=== PATIENT | female | born 1960 | race African-American/Black ===

== ENCOUNTER 2016-06-09 13:51 | Inpatient (IN) | payer MEDICAID, OTHER ==
[~2016-06-09] VITALS: Ht 167.6 cm; Wt 66.2 kg
[~2016-06-09 13:51] MED LIST: CLOB15CR5; KETO120S2; PRED10TA
[2016-06-09] MEDS ORDERED: MORPHINE SULFATE 4 MG/ML CPJ (NOT FOR IM USE) IV STA (15:17)
[2016-06-09] MEDS ORDERED: ONDANSETRON HCL 4MG/2ML VIAL IV STA (15:17)
[2016-06-09] MEDS ORDERED: SODIUM CHLORIDE 0.9% 1000ML BAG (SEPSIS BOLUS) IV ONE (15:30)
[2016-06-09 15:55] LABS: HEMATOCRIT. 30.3 % (36.0-48.0); HEMOGLOBIN. 9.8 g/dL (12.0-16.0); MEAN CORPUSCULAR HEMOGLOBIN 27.4 pg (28.0-32.0); MEAN CORPUSCULAR HGB CONC 32.2 g/dL (31.0-37.0); MEAN PLATELET VOLUME 7.8 fl (7.4-10.4); PLATELET 381 x1000/uL (130-400); RED BLOOD CELL COUNT 3.56 mill/uL (4.2-5.4); RED CELL DISTRIBUTION WIDTH 16.8 % (11.6-14.6); WHITE BLOOD COUNT 6.6 x1000/uL (4.5-11.0)
[2016-06-09 15:57] LABS: DIFFERENTIAL COMMENT 1
[2016-06-09 16:06] LABS: ALANINE AMINOTRANSFERASE 8 IU/L (13-61); ALBUMIN 1.9 g/dL (3.4-5.0); ANION GAP 13; CALCIUM 7.9 mg/dL (8.5-10.1); CARBON DIOXIDE 27 mEq/L (21-32); CHLORIDE 108 mEq/L (98-107); INDEX HEMOLYSI 1 (1-3); INDEX ICTERIC 1 (1-4); INDEX LIPEMIC 1 (1-3); eGFR > 60 mL/min (>60)
[2016-06-09 16:07] LABS: UREA NITROGEN BLOOD 4 mg/dL (7-21)
[2016-06-09 16:29] LABS: PLATELET ESTIMATE NORMAL
[2016-06-09 16:30] LABS: ANISOCYTOSIS 1+
[2016-06-09 17:13] LABS: INR 1.2
[2016-06-09] MEDS ORDERED: PIPERACILLIN/TAZ 3.375G PREMIX 50 ML IV ONE (17:30)
[2016-06-09] MEDS ORDERED: VANCOMYCIN 1 G PREMIX 200 ML IV ONE (21:15)
[2016-06-09 23:20] VITALS: BP 135/66
[2016-06-10] MEDS ORDERED: CLONIDINE 0.1MG TABLET PO PRN (01:30)
[2016-06-10] MEDS ORDERED: HYDROCODONE/ACETAMINOPHEN 5/325MG TABLET PO PRN (01:30)
[2016-06-10] MEDS ORDERED: ONDANSETRON HCL 4MG/2ML VIAL IV PRN (01:30)
[2016-06-10] MEDS ORDERED: MAGNESIUM/ALUMINUM HYDROXIDE/SIMETHICONE 30ML UDC PO PRN (01:30)
[2016-06-10] MEDS: SODIUM CHLORIDE 0.9% 1,000 ML IV SCH ×2 (03:24→17:30)
[2016-06-10] MEDS: PIPERACILLIN/TAZ 3.375G PREMIX 50 ML IV SCH ×2 (03:24→12:06)
[2016-06-10] MEDS ORDERED: VANCOMYCIN 500 MG PREMIX 100 ML IV SCH (05:00)
[2016-06-10 08:00] VITALS: BP 101/63
[2016-06-10] MEDS ORDERED: ENOXAPARIN 40MG/0.4ML SYR SUBCUT SCH (09:00)
[2016-06-10 10:02] LABS: ANION GAP 13; CALCIUM 7.5 mg/dL (8.5-10.1); CARBON DIOXIDE 22 mEq/L (21-32); CHLORIDE 117 mEq/L (98-107); HDL CHOLESTEROL 32 mg/dL (40-59); INDEX HEMOLYSI 4 (1-3); INDEX ICTERIC 1 (1-4); INDEX LIPEMIC 1 (1-3); LDL CHOLESTEROL 40 mg/dL (5-100); TRIGLYCERIDE 106 mg/dL (0-150); eGFR > 60 mL/min (>60)
[2016-06-10 10:06] LABS: UREA NITROGEN BLOOD 3 mg/dL (7-21)
[2016-06-10 12:00] VITALS: BP 88/52
[2016-06-10 14:16] LABS: HEMATOCRIT. 27.5 % (36.0-48.0); HEMOGLOBIN. 8.8 g/dL (12.0-16.0); MEAN CORPUSCULAR HEMOGLOBIN 26.9 pg (28.0-32.0); MEAN CORPUSCULAR HGB CONC 32.1 g/dL (31.0-37.0); MEAN PLATELET VOLUME 8.1 fl (7.4-10.4); PLATELET 317 x1000/uL (130-400); RED BLOOD CELL COUNT 3.27 mill/uL (4.2-5.4); RED CELL DISTRIBUTION WIDTH 17.3 % (11.6-14.6); WHITE BLOOD COUNT 7.2 x1000/uL (4.5-11.0)
[2016-06-10 14:30] LABS: DIFFERENTIAL COMMENT 1
[2016-06-10 16:00] VITALS: BP 117/93
[2016-06-10] MEDS: HYDROCODONE/ACETAMINOPHEN 10/325MG TABLET PO PRN (16:43)
[2016-06-10] MEDS: METOCLOPRAMIDE HCL 5MG TABLET PO SCH (17:52)
[2016-06-10] MEDS ORDERED: MEGESTROL ACETATE 20MG TABLET PO SCH (18:00)
[2016-06-10] MEDS: VANCOMYCIN 1 G PREMIX 200 ML IV SCH (18:33)
[2016-06-10] MEDS ORDERED: WARFARIN SODIUM 4MG TABLET PO ONE (19:00)
[2016-06-10 19:28] LABS: ANISOCYTOSIS 1+; PLATELET ESTIMATE NORMAL
[2016-06-10 20:00] VITALS: BP 101/71
[2016-06-10] MEDS ORDERED: WARFARIN SODIUM 7.5MG TABLET PO SCH (21:30)
[2016-06-11] VITALS: BP 100/58
[2016-06-11] MEDS: METOCLOPRAMIDE HCL 5MG TABLET PO SCH ×5 (00:10→23:56)
[2016-06-11] MEDS: PIPERACILLIN/TAZ 3.375G PREMIX 50 ML IV SCH ×3 (00:12→11:14)
[2016-06-11] MEDS: HYDROCODONE/ACETAMINOPHEN 10/325MG TABLET PO PRN ×3 (00:32→22:37)
[2016-06-11 01:59] LABS: INR 1.3; PROTHROMBIN TIME 13.5 sec
[2016-06-11] MEDS: SODIUM CHLORIDE 0.9% 1,000 ML IV SCH ×2 (03:10→16:14)
[2016-06-11 04:00] VITALS: BP 90/48
[2016-06-11] MEDS: VANCOMYCIN 1 G PREMIX 200 ML IV SCH ×2 (05:31→18:40)
[2016-06-11 08:00] VITALS: BP 100/62
[2016-06-11] MEDS: MEGESTROL ACETATE 400 MG/10 ML UDC PO SCH ×2 (08:00→08:48)
[2016-06-11] MEDS ORDERED: WARF4TAB39 PO (10:58)
[2016-06-11 12:00] VITALS: BP 102/59
[2016-06-11 13:22] LABS: HEMATOCRIT. 32.4 % (36.0-48.0); HEMOGLOBIN. 10.4 g/dL (12.0-16.0); MEAN CORPUSCULAR HEMOGLOBIN 26.8 pg (28.0-32.0); MEAN CORPUSCULAR VOLUME 83.8 fL (81.0-99.0); MEAN PLATELET VOLUME 7.7 fl (7.4-10.4); PLATELET 321 x1000/uL (130-400); RED BLOOD CELL COUNT 3.86 mill/uL (4.2-5.4); RED CELL DISTRIBUTION WIDTH 17.2 % (11.6-14.6); WHITE BLOOD COUNT 9.9 x1000/uL (4.5-11.0)
[2016-06-11 13:23] LABS: DIFFERENTIAL COMMENT 1
[2016-06-11 13:36] LABS: INR 1.4; PROTHROMBIN TIME 14.4 sec
[2016-06-11 13:59] LABS: CALCIUM 7.5 mg/dL (8.5-10.1)
[2016-06-11 14:58] LABS: ANISOCYTOSIS 1+; PLATELET ESTIMATE NORMAL
[2016-06-11 16:00] VITALS: BP 114/59
[2016-06-11] MEDS ORDERED: WARFARIN SODIUM 7.5MG TABLET PO NR (18:00)
[2016-06-11 20:00] VITALS: BP 104/57
[2016-06-11] MEDS: CEFTAZIDIME PENTAHYDRATE 1 G in DEXTROSE 5% WATER 50 ML IV SCH (22:26)
[2016-06-11] MEDS: METRONIDAZOLE 500 MG PREMIX 100 ML IV SCH (23:54)
[2016-06-12] VITALS: BP 104/55
[2016-06-12 04:00] VITALS: BP 96/60
[2016-06-12] MEDS: METOCLOPRAMIDE HCL 5MG TABLET PO SCH ×3 (04:56→18:46)
[2016-06-12] MEDS: SODIUM CHLORIDE 0.9% 1,000 ML IV SCH ×2 (04:56→13:15)
[2016-06-12] MEDS: VANCOMYCIN 1 G PREMIX 200 ML IV SCH (04:56)
[2016-06-12 05:52] LABS: INR 1.7
[2016-06-12 06:23] LABS: HEMATOCRIT. 26.7 % (36.0-48.0); HEMOGLOBIN. 8.6 g/dL (12.0-16.0); MEAN CORPUSCULAR HEMOGLOBIN 27.1 pg (28.0-32.0); MEAN CORPUSCULAR HGB CONC 32.2 g/dL (31.0-37.0); MEAN CORPUSCULAR VOLUME 84.2 fL (81.0-99.0); MEAN PLATELET VOLUME 8.2 fl (7.4-10.4); PLATELET 272 x1000/uL (130-400); RED BLOOD CELL COUNT 3.17 mill/uL (4.2-5.4); RED CELL DISTRIBUTION WIDTH 16.8 % (11.6-14.6); WHITE BLOOD COUNT 7.7 x1000/uL (4.5-11.0)
[2016-06-12 06:51] LABS: DIFFERENTIAL COMMENT 1
[2016-06-12 06:55] LABS: CALCIUM 7.1 mg/dL (8.5-10.1); VANCOMYCIN TROUGH 31.3 ug/mL (5.0-10.0)
[2016-06-12] MEDS: CEFTAZIDIME PENTAHYDRATE 1 G in DEXTROSE 5% WATER 50 ML IV SCH ×2 (07:58→20:00)
[2016-06-12] MEDS: MEGESTROL ACETATE 400 MG/10 ML UDC PO SCH (07:58)
[2016-06-12 08:00] VITALS: BP 90/52
[2016-06-12] MEDS: METRONIDAZOLE 500 MG PREMIX 100 ML IV SCH ×2 (10:24→20:27)
[2016-06-12 11:59] LABS: PLATELET ESTIMATE NORMAL
[2016-06-12 12:00] VITALS: BP 103/60
[2016-06-12] MEDS: HYDROCODONE/ACETAMINOPHEN 10/325MG TABLET PO PRN ×2 (12:26→21:30)
[2016-06-12] MEDS ORDERED: POTASSIUM CHLORIDE 20MEQ TABLET SR PO NR (13:15)
[2016-06-12 16:00] VITALS: BP 107/58
[2016-06-12] MEDS ORDERED: WARFARIN SODIUM 7.5MG TABLET PO NR (18:00)
[2016-06-12 20:00] VITALS: BP 109/72
[2016-06-12] MEDS ORDERED: METRONIDAZOLE 500MG TABLET PO NR (20:30)
[2016-06-12] MEDS ORDERED: CLARITHROMYCIN 500MG TABLET PO NR (20:30)
[2016-06-12] MEDS: PANTOT AC/MIN OIL/PET HY-PHL OINT 52.5GM (AQUAPHOR) TOP SCH (21:32)
[2016-06-13] VITALS: BP 108/46
[2016-06-13] MEDS: METOCLOPRAMIDE HCL 5MG TABLET PO SCH ×5 (01:21→23:08)
[2016-06-13] MEDS: SODIUM CHLORIDE 0.9% 1,000 ML IV SCH ×2 (05:33→19:14)
[2016-06-13] MEDS ORDERED: CLARITHROMYCIN 500MG TABLET PO NR (06:00)
[2016-06-13] MEDS ORDERED: VANCOMYCIN 1 G PREMIX 200 ML IV SCH (06:00)
[2016-06-13] MEDS: HYDROCODONE/ACETAMINOPHEN 10/325MG TABLET PO PRN ×2 (06:48→23:09)
[2016-06-13 08:00] VITALS: BP 102/65
[2016-06-13] MEDS: MEGESTROL ACETATE 400 MG/10 ML UDC PO SCH (08:00)
[2016-06-13] MEDS: PANTOT AC/MIN OIL/PET HY-PHL OINT 52.5GM (AQUAPHOR) TOP SCH (09:21)
[2016-06-13] MEDS: CEFTAZIDIME PENTAHYDRATE 1 G in DEXTROSE 5% WATER 50 ML IV SCH ×2 (09:21→21:07)
[2016-06-13] MEDS: METRONIDAZOLE 500 MG PREMIX 100 ML IV SCH ×2 (11:09→23:09)
[2016-06-13 12:00] VITALS: BP 111/67
[2016-06-13] MEDS: MORPHINE SULFATE 2 MG/ML CPJ (NOT FOR IM USE) IV PRN ×2 (15:16→21:33)
[2016-06-13 16:00] VITALS: BP 128/93
[2016-06-13] MEDS: MUPIROCIN 2% CREAM 15GM TOP SCH ×2 (16:18→21:33)
[2016-06-13 17:17] LABS: BASOPHILS % 0.3 % (0.0-2.0); EOSINOPHILS % 13.2 % (0.0-5.0); HEMATOCRIT. 29.3 % (36.0-48.0); HEMOGLOBIN. 9.2 g/dL (12.0-16.0); LYMPHOCYTES % 9.5 % (20.0-50.0); MEAN CORPUSCULAR HEMOGLOBIN 25.8 pg (28.0-32.0); MEAN CORPUSCULAR HGB CONC 31.4 g/dL (31.0-37.0); MEAN CORPUSCULAR VOLUME 82.2 fL (81.0-99.0); MEAN PLATELET VOLUME 7.5 fl (7.4-10.4); MONOCYTES % 8.5 % (2.0-8.0); NEUTROPHILS % 68.5 % (40.0-76.0); PLATELET 328 x1000/uL (130-400); RED BLOOD CELL COUNT 3.57 mill/uL (4.2-5.4); RED CELL DISTRIBUTION WIDTH 17.6 % (11.6-14.6); WHITE BLOOD COUNT 11.3 x1000/uL (4.5-11.0)
[2016-06-13 17:43] LABS: CALCIUM 7.3 mg/dL (8.5-10.1)
[2016-06-13] MEDS: VANCOMYCIN 1 G PREMIX 200 ML IV SCH (17:43)
[2016-06-13 17:49] LABS: INR 3.4; PROTHROMBIN TIME 35.2 sec
[2016-06-13] MEDS ORDERED: WARFARIN SODIUM 7.5MG TABLET PO NR (18:00)
[2016-06-13 20:00] VITALS: BP 111/64
[2016-06-14] VITALS: BP 112/64
[2016-06-14 04:00] VITALS: BP 112/64
[2016-06-14 08:00] VITALS: BP 101/69
[2016-06-14] MEDS: METOCLOPRAMIDE HCL 5MG TABLET PO SCH ×4 (08:19→23:18)
[2016-06-14] MEDS: MUPIROCIN 2% CREAM 15GM TOP SCH ×3 (08:19→21:43)
[2016-06-14] MEDS: CEFTAZIDIME PENTAHYDRATE 1 G in DEXTROSE 5% WATER 50 ML IV SCH ×2 (09:18→20:36)
[2016-06-14] MEDS: PANTOT AC/MIN OIL/PET HY-PHL OINT 52.5GM (AQUAPHOR) TOP SCH (09:18)
[2016-06-14] MEDS: METRONIDAZOLE 500 MG PREMIX 100 ML IV SCH ×2 (09:18→21:43)
[2016-06-14] MEDS: VANCOMYCIN 1 G PREMIX 200 ML IV SCH (09:18)
[2016-06-14] MEDS: MEGESTROL ACETATE 400 MG/10 ML UDC PO SCH (09:19)
[2016-06-14 09:42] LABS: BASOPHILS % 0.3 % (0.0-2.0); HEMOGLOBIN. 8.6 g/dL (12.0-16.0); LYMPHOCYTES % 8.1 % (20.0-50.0); MEAN CORPUSCULAR HEMOGLOBIN 26.4 pg (28.0-32.0); MEAN CORPUSCULAR HGB CONC 31.8 g/dL (31.0-37.0); MEAN CORPUSCULAR VOLUME 82.9 fL (81.0-99.0); MEAN PLATELET VOLUME 7.9 fl (7.4-10.4); NEUTROPHILS % 71.6 % (40.0-76.0); PLATELET 294 x1000/uL (130-400); RED BLOOD CELL COUNT 3.26 mill/uL (4.2-5.4); RED CELL DISTRIBUTION WIDTH 17.4 % (11.6-14.6); WHITE BLOOD COUNT 12.1 x1000/uL (4.5-11.0)
[2016-06-14 09:47] LABS: INR 5.3
[2016-06-14 10:25] LABS: CALCIUM 7.5 mg/dL (8.5-10.1); URIC ACID 8.2 mg/dL (2.6-7.2)
[2016-06-14 12:00] VITALS: BP 106/70
[2016-06-14 16:00] VITALS: BP 127/72
[2016-06-14 16:57] LABS: CREATINE KINASE 126 IU/L (26-192); INDEX HEMOLYSI 1 (1-3)
[2016-06-14] MEDS: SODIUM CHLORIDE 0.9% 1,000 ML IV SCH (18:25)
[2016-06-14] MEDS: HYDROCODONE/ACETAMINOPHEN 10/325MG TABLET PO PRN (19:58)
[2016-06-15] VITALS (7 sets, daily range): BP systolic 97–122; BP diastolic 55–78
[2016-06-15] MEDS: MUPIROCIN 2% CREAM 15GM TOP SCH ×3 (06:54→22:00)
[2016-06-15] MEDS: METOCLOPRAMIDE HCL 5MG TABLET PO SCH ×3 (06:54→20:23)
[2016-06-15] MEDS: HYDROCODONE/ACETAMINOPHEN 10/325MG TABLET PO PRN (07:13)
[2016-06-15] MEDS: MEGESTROL ACETATE 400 MG/10 ML UDC PO SCH (08:00)
[2016-06-15 08:27] LABS: BASOPHILS % 0.4 % (0.0-2.0); EOSINOPHILS % 13.5 % (0.0-5.0); HEMOGLOBIN. 8.9 g/dL (12.0-16.0); LYMPHOCYTES % 10.1 % (20.0-50.0); MEAN CORPUSCULAR HEMOGLOBIN 26.3 pg (28.0-32.0); MEAN CORPUSCULAR HGB CONC 31.7 g/dL (31.0-37.0); MEAN CORPUSCULAR VOLUME 82.8 fL (81.0-99.0); MEAN PLATELET VOLUME 7.9 fl (7.4-10.4); MONOCYTES % 8.4 % (2.0-8.0); NEUTROPHILS % 67.6 % (40.0-76.0); PLATELET 312 x1000/uL (130-400); RED BLOOD CELL COUNT 3.38 mill/uL (4.2-5.4); RED CELL DISTRIBUTION WIDTH 17.3 % (11.6-14.6); WHITE BLOOD COUNT 11.7 x1000/uL (4.5-11.0)
[2016-06-15 08:36] LABS: PROTHROMBIN TIME 47.8 sec
[2016-06-15 08:41] LABS: INR 4.6
[2016-06-15 08:54] LABS: CALCIUM 7.4 mg/dL (8.5-10.1)
[2016-06-15] MEDS: CEFTAZIDIME PENTAHYDRATE 1 G in DEXTROSE 5% WATER 50 ML IV SCH (10:12)
[2016-06-15] MEDS: PANTOT AC/MIN OIL/PET HY-PHL OINT 52.5GM (AQUAPHOR) TOP SCH (10:22)
[2016-06-15] MEDS: METRONIDAZOLE 500 MG PREMIX 100 ML IV SCH ×2 (11:58→20:41)
[2016-06-15] MEDS ORDERED: HYDROCODONE/ACETAMINOPHEN 10/325MG TABLET PO PRN (16:00)
[2016-06-15] MEDS: ACETAMINOPHEN 325MG TABLET PO PRN (20:41)
[2016-06-15] MEDS: SODIUM CHLORIDE 0.9% 1,000 ML IV SCH (20:44)
[2016-06-16] MEDS: SODIUM CHLORIDE 0.9% 1,000 ML IV SCH
[2016-06-16] MEDS: METOCLOPRAMIDE HCL 5MG TABLET PO SCH ×4 (00:02→18:00)
[2016-06-16 03:41] VITALS: BP 117/69
[2016-06-16] MEDS: MUPIROCIN 2% CREAM 15GM TOP SCH ×2 (06:06→14:00)
[2016-06-16 07:25] LABS: PROTHROMBIN TIME 51.4 sec
[2016-06-16 08:00] VITALS: BP 104/62
[2016-06-16 08:53] LABS: INR 4.9
[2016-06-16] MEDS ORDERED: CEFTAZIDIME PENTAHYDRATE 1 G in DEXTROSE 5% WATER 50 ML IV SCH (09:00)
[2016-06-16] MEDS: MEGESTROL ACETATE 400 MG/10 ML UDC PO SCH (09:52)
[2016-06-16] MEDS: METRONIDAZOLE 500 MG PREMIX 100 ML IV SCH (09:52)
[2016-06-16] MEDS: PANTOT AC/MIN OIL/PET HY-PHL OINT 52.5GM (AQUAPHOR) TOP SCH (09:53)
[2016-06-16 12:00] VITALS: BP 96/56
[2016-06-16 16:00] VITALS: BP 97/68
[2016-06-16] MEDS ORDERED: VANCOMYCIN 500 MG PREMIX 100 ML IV SCH (16:00)
[2016-06-16] MEDS: ACETAMINOPHEN 325MG TABLET PO PRN (16:48)
[2016-06-16 18:06] VITALS: BP 97/68
[2016-06-17 17:09] LABS: ANTI-NUCLEAR ANTIBODIES DIRECT Negative (Negative)
[2016-06-19 13:13] LABS: A/G RATIO 0.7 (0.7-1.7); ALBUMIN 1.8 g/dL (2.9-4.4); ALPHA-1-GLOBULIN 0.4 g/dL (0.0-0.4); ALPHA-2-GLOBULIN 0.6 g/dL (0.4-1.0); BETA GLOBULIN 0.7 g/dL (0.7-1.3); GAMMA GLOBULINS 0.8 g/dL (0.4-1.8); GLOBULIN TOTAL 2.5 g/dL (2.2-3.9); M-SPIKE Not Observed g/dL (Not Observed); TOTAL PROTEIN SERUM 4.3 g/dL (6.0-8.5)
[2016-06-20 06:19] LABS: COMPLEMENT C3 81 mg/dL (82-167); COMPLEMENT C4 24 mg/dL (14-44)
== END 2016-06-16 19:06 | disposition home or self-care (01) | DRG 383 ==
LOC: ER 14:20 → 6EST 21:12
PROVIDERS: ADMIT Internal Medicine; ATTEND Internal Medicine
PROC: 02HV33Z Insertion of Infusion Device into Superior Vena Cava, Percutaneous Approach (ICD-10-PCS; principal; 2016-06-10)
PROC: B548ZZA Ultrasonography of Superior Vena Cava, Guidance (ICD-10-PCS; 2016-06-10)
PROC: 02HV33Z Insertion of Infusion Device into Superior Vena Cava, Percutaneous Approach (ICD-10-PCS; 2016-06-13)
PROC: B5181ZA Fluoroscopy of Superior Vena Cava using Low Osmolar Contrast, Guidance (ICD-10-PCS; 2016-06-13)
PROC: B548ZZA Ultrasonography of Superior Vena Cava, Guidance (ICD-10-PCS; 2016-06-13)
DX: L03.115 Cellulitis of right lower limb (principal); E43 Unspecified severe protein-calorie malnutrition; D68.9 Coagulation defect, unspecified; E87.0 Hyperosmolality and hypernatremia; N17.9 Acute kidney failure, unspecified; C43.9 Malignant melanoma of skin, unspecified; C84.A0 Cutaneous T-cell lymphoma, unspecified, unspecified site; S71.101A Unspecified open wound, right thigh, initial encounter; T45.1X5A Adverse effect of antineoplastic and immunosuppressive drugs, initial encounter; E83.51 Hypocalcemia; K52.9 Noninfective gastroenteritis and colitis, unspecified; D64.9 Anemia, unspecified; J45.909 Unspecified asthma, uncomplicated; E87.6 Hypokalemia; E88.09 Other disorders of plasma-protein metabolism, not elsewhere classified; R59.0 Localized enlarged lymph nodes; D72.825 Bandemia; B95.2 Enterococcus as the cause of diseases classified elsewhere; B96.5 Pseudomonas (aeruginosa) (mallei) (pseudomallei) as the cause of diseases classified elsewhere; B96.89 Other specified bacterial agents as the cause of diseases classified elsewhere; Z16.21 Resistance to vancomycin; X58.XXXA Exposure to other specified factors, initial encounter; Z68.23 Body mass index [BMI] 23.0-23.9, adult; Z88.8 Allergy status to other drugs, medicaments and biological substances; Z91.018 Allergy to other foods; Z85.89 Personal history of malignant neoplasm of other organs and systems; Z86.718 Personal history of other venous thrombosis and embolism; Z22.322 Carrier or suspected carrier of Methicillin resistant Staphylococcus aureus; Y93.89 Activity, other specified; Y92.89 Other specified places as the place of occurrence of the external cause; Y99.8 Other external cause status
CPT/HCPCS: 36415; 36569; 71010; 76770; 76937; 77001; 80048; 80053; 80061; 80202; 82270; 82550; 83605; 83615; 84155; 84165; 84550; 85025; 85384; 85610; 86038; 86160; 87015; 87040; 87045; 87070; 87077; 87186; 87205; 87427; 87449; 87493; 89055; 93005; 93970; 96361; 96365; 96367; 96375; 97116; 97162; 97167; 97530; 97535; 99285; A6261; C1725; C1769; C1893; J0713; J1650; J2270; J2405; J2543; J3370; J3490; J7030; J7050; J7060; J8597

== ENCOUNTER 2017-01-23 12:24 | Inpatient (IN) | payer MEDICAID, OTHER ==
[~2017-01-23] VITALS: Ht 157.5 cm; Wt 97.1 kg
[2017-01-23] MEDS ORDERED: MORPHINE SULFATE 4 MG/ML CPJ (NOT FOR IM USE) IV STA (13:17)
[2017-01-23 13:26] LABS: MEAN CORPUSCULAR HEMOGLOBIN 28.6 pg (28.0-32.0); MEAN CORPUSCULAR VOLUME 82.5 fL (81.0-99.0); PLATELET 56 x1000/uL (130-400); RED BLOOD CELL COUNT 2.05 mill/uL (4.2-5.4); RED CELL DISTRIBUTION WIDTH 16.8 % (11.6-14.6)
[2017-01-23 13:28] LABS: CHLORIDE 104 mEq/L (98-107)
[2017-01-23] MEDS ORDERED: PIPERACILLIN/TAZ 3.375G PREMIX 50 ML IV ONE (13:30)
[2017-01-23] MEDS ORDERED: VANCOMYCIN 1 G PREMIX 200 ML IV ONE (13:30)
[2017-01-23 13:31] LABS: INR 2.1; PROTHROMBIN TIME 22.1 sec (9.4-11.6)
[2017-01-23 13:33] LABS: CARBON DIOXIDE 25 mEq/L (21-32)
[2017-01-23 13:34] LABS: HEMATOCRIT. 16.9 % (36.0-48.0); HEMOGLOBIN. 5.9 g/dL (12.0-16.0)
[2017-01-23] MEDS ORDERED: MORPHINE SULFATE 10 MG/ML CPJ IV SCH (13:35)
[2017-01-23] MEDS ORDERED: SODIUM CHLORIDE 0.9% 1,000 ML IV SCH (13:51)
[2017-01-23 14:44] LABS: CLARITY URINE CLEAR (CLEAR); COLOR URINE YELLOW (YELLOW); GLUCOSE URINE NEGATIVE (NEGATIVE); KETONES URINE 1+ (NEGATIVE); LEUKOCYTE ESTERASE URINE NEGATIVE (NEGATIVE); NITRITE URINE NEGATIVE (NEGATIVE); OCCULT BLOOD URINE NEGATIVE (NEGATIVE); PROTEIN URINE TRACE (NEGATIVE); SPECIFIC GRAVITY URINE 1.011 (1.005-1.030)
[2017-01-23] MEDS ORDERED: ONDANSETRON HCL 4MG/2ML VIAL IV PRN (15:15)
[2017-01-23] MEDS ORDERED: IPRATROPIUM/ALBUTEROL 0.5-3(2.5)MG/3ML NEB INH PRN (15:15)
[2017-01-23 16:01] LABS: PLATELET ESTIMATE DECREASED
[2017-01-23] MEDS ORDERED: VANCOMYCIN 1 G PREMIX 200 ML IV SCH (18:00)
[2017-01-23] MEDS: HYDROCODONE/ACETAMINOPHEN 5/325MG TABLET PO PRN ×2 (18:25→22:53)
[2017-01-23 18:26] VITALS: BP 105/46
[2017-01-23 19:51] VITALS: BP 99/50
[2017-01-23] MEDS: PIPERACILLIN/TAZ 3.375G PREMIX 50 ML IV SCH (20:37)
[2017-01-23] MEDS ORDERED: FILGRASTIM 300 MCG/ML VIAL SUBCUT SCH (21:00)
[2017-01-23] MEDS ORDERED: VANCOMYCIN 1500MG in DEXTROSE 5% WATER 250ML IV SCH (21:00)
[2017-01-23 23:01] VITALS: BP 99/50
[2017-01-23 23:41] LABS: CARBON DIOXIDE 26 mEq/L (21-32); CHLORIDE 105 mEq/L (98-107)
[2017-01-24] VITALS (8 sets, daily range): BP systolic 90–105; BP diastolic 44–58
[2017-01-24] MEDS: PIPERACILLIN/TAZ 3.375G PREMIX 50 ML IV SCH ×4 (02:46→20:26)
[2017-01-24] MEDS: MORPHINE SULFATE 10 MG/ML CPJ IV PRN ×4 (04:57→21:24)
[2017-01-24 06:39] LABS: HEMATOCRIT. 21.3 % (36.0-48.0); HEMOGLOBIN. 7.4 g/dL (12.0-16.0); MEAN CORPUSCULAR HEMOGLOBIN 29.1 pg (28.0-32.0); MEAN CORPUSCULAR VOLUME 83.4 fL (81.0-99.0); MEAN PLATELET VOLUME 7.7 fl (7.4-10.4); PLATELET 67 x1000/uL (130-400); RED BLOOD CELL COUNT 2.55 mill/uL (4.2-5.4); RED CELL DISTRIBUTION WIDTH 16.3 % (11.6-14.6)
[2017-01-24] MEDS: VANCOMYCIN 1 G PREMIX 200 ML IV SCH ×2 (09:31→22:00)
[2017-01-24] MEDS: HYDROCODONE/ACETAMINOPHEN 5/325MG TABLET PO PRN (09:36)
[2017-01-24] MEDS: ACETAMINOPHEN 325MG TABLET PO PRN ×2 (11:48→20:00)
[2017-01-24] MEDS: SODIUM CHLORIDE 0.9% 1,000 ML IV SCH (14:56)
[2017-01-24 16:52] LABS: PLATELET ESTIMATE DECREASED
[2017-01-24] MEDS: FILGRASTIM-TBO 480 MCG/0.8 ML SYRINGE SQ SCH (23:06)
[2017-01-25] VITALS (12 sets, daily range): BP systolic 90–103; BP diastolic 46–58
[2017-01-25] MEDS: MORPHINE SULFATE 10 MG/ML CPJ IV PRN ×7 (02:32→23:16)
[2017-01-25] MEDS: PIPERACILLIN/TAZ 3.375G PREMIX 50 ML IV SCH ×4 (02:39→20:52)
[2017-01-25] MEDS: SODIUM CHLORIDE 0.9% 1,000 ML IV SCH ×2 (06:00→09:40)
[2017-01-25 07:25] LABS: CARBON DIOXIDE 23 mEq/L (21-32); CHLORIDE 107 mEq/L (98-107)
[2017-01-25] MEDS: ACETAMINOPHEN 325MG TABLET PO PRN (08:58)
[2017-01-25] MEDS: VANCOMYCIN 1 G PREMIX 200 ML IV SCH (09:39)
[2017-01-25] MEDS: MIDODRINE HCL 2.5MG TABLET PO SCH ×2 (12:01→16:47)
[2017-01-25] MEDS ORDERED: POTASSIUM CHLORIDE INJ 40 MEQ in DEXT 5% WATER 250 ML IV NR (16:00)
[2017-01-25] MEDS: FILGRASTIM-TBO 480 MCG/0.8 ML SYRINGE SQ SCH (22:47)
[2017-01-25] MEDS: VANCOMYCIN 750 MG PREMIX 150 ML IV SCH (23:17)
[2017-01-26] VITALS (13 sets, daily range): BP systolic 82–114; BP diastolic 40–69
[2017-01-26] MEDS: MORPHINE SULFATE 10 MG/ML CPJ IV PRN ×2 (00:31→08:49)
[2017-01-26] MEDS: PIPERACILLIN/TAZ 3.375G PREMIX 50 ML IV SCH ×4 (02:54→21:15)
[2017-01-26] MEDS: SODIUM CHLORIDE 0.9% 1,000 ML IV SCH ×3 (02:55→15:47)
[2017-01-26] MEDS: OXYCODONE HCL/ACETAMINOPHEN 5/325MG TABLET PO PRN ×3 (03:17→21:27)
[2017-01-26] MEDS: MIDODRINE HCL 2.5MG TABLET PO SCH (08:47)
[2017-01-26] MEDS: MIDODRINE HCL 5MG TABLET PO SCH ×2 (12:15→18:26)
[2017-01-26] MEDS: VANCOMYCIN 750 MG PREMIX 150 ML IV SCH ×2 (12:15→23:54)
[2017-01-26] MEDS: ACETAMINOPHEN 325MG TABLET PO PRN (13:19)
[2017-01-26 13:39] LABS: HEMATOCRIT. 24.5 % (36.0-48.0); HEMOGLOBIN. 8.3 g/dL (12.0-16.0); MEAN CORPUSCULAR HEMOGLOBIN 28.6 pg (28.0-32.0); MEAN CORPUSCULAR VOLUME 84.6 fL (81.0-99.0); MEAN PLATELET VOLUME 7.8 fl (7.4-10.4); PLATELET 154 x1000/uL (130-400); RED CELL DISTRIBUTION WIDTH 16.7 % (11.6-14.6)
[2017-01-26 13:52] LABS: CARBON DIOXIDE 24 mEq/L (21-32); CHLORIDE 109 mEq/L (98-107)
[2017-01-26 14:14] LABS: PLATELET ESTIMATE NORMAL
[2017-01-26] MEDS ORDERED: FILGRASTIM-TBO 300 MCG/0.5 ML SYRINGE SQ SCH (21:00)
[2017-01-27] VITALS (19 sets, daily range): BP systolic 80–107; BP diastolic 44–71
[2017-01-27] MEDS: SODIUM CHLORIDE 0.9% 1,000 ML IV SCH ×3 (02:46→22:06)
[2017-01-27] MEDS: MORPHINE SULFATE 4 MG/ML CPJ (NOT FOR IM USE) IV PRN ×2 (02:46→20:13)
[2017-01-27] MEDS: PIPERACILLIN/TAZ 3.375G PREMIX 50 ML IV SCH ×4 (02:48→21:36)
[2017-01-27 08:32] LABS: HEMATOCRIT 23.9 % (36.0-48.0); HEMOGLOBIN 8.2 g/dL (12.0-16.0); MEAN CORPUSCULAR HEMOGLOBIN 28.9 pg (28.0-32.0); MEAN CORPUSCULAR VOLUME 84.6 fL (81.0-99.0); PLATELET 167 x1000/uL (130-400); RED BLOOD CELL COUNT 2.82 mill/uL (4.2-5.4); RED CELL DISTRIBUTION WIDTH 16.6 % (11.6-14.6)
[2017-01-27] MEDS: MIDODRINE HCL 5MG TABLET PO SCH ×3 (08:32→17:09)
[2017-01-27] MEDS: OXYCODONE HCL/ACETAMINOPHEN 5/325MG TABLET PO PRN ×2 (08:33→14:33)
[2017-01-27 08:47] LABS: CARBON DIOXIDE 24 mEq/L (21-32); CHLORIDE 109 mEq/L (98-107); VANCOMYCIN TROUGH 23.7 ug/mL (5.0-10.0)
[2017-01-27] MEDS: VANCOMYCIN 750 MG PREMIX 150 ML IV SCH (11:25)
[2017-01-27] MEDS ORDERED: VANCOMYCIN 1250MG in DEXTROSE 5% WATER 250ML IV SCH (13:00)
[2017-01-27] MEDS ORDERED: VANCOMYCIN 500 MG PREMIX 100 ML IV SCH (13:00)
[2017-01-27] MEDS ORDERED: POTASSIUM CHLORIDE INJ 40 MEQ in DEXT 5% WATER 250 ML IV NR (14:00)
[2017-01-28] VITALS (13 sets, daily range): BP systolic 90–110; BP diastolic 47–63
[2017-01-28] MEDS: MORPHINE SULFATE 4 MG/ML CPJ (NOT FOR IM USE) IV PRN ×5 (03:14→22:03)
[2017-01-28] MEDS: PIPERACILLIN/TAZ 3.375G PREMIX 50 ML IV SCH ×4 (03:15→21:50)
[2017-01-28 07:08] LABS: HEMOGLOBIN. 7.6 g/dL (12.0-16.0); MEAN CORPUSCULAR HEMOGLOBIN 28.1 pg (28.0-32.0); MEAN CORPUSCULAR VOLUME 85.4 fL (81.0-99.0); MEAN PLATELET VOLUME 8.4 fl (7.4-10.4); PLATELET 233 x1000/uL (130-400); RED BLOOD CELL COUNT 2.69 mill/uL (4.2-5.4); RED CELL DISTRIBUTION WIDTH 16.6 % (11.6-14.6)
[2017-01-28 07:39] LABS: CARBON DIOXIDE 20 mEq/L (21-32); CHLORIDE 114 mEq/L (98-107)
[2017-01-28] MEDS: VANCOMYCIN 1250MG in DEXTROSE 5% WATER 250ML IV SCH (08:51)
[2017-01-28] MEDS: MIDODRINE HCL 5MG TABLET PO SCH ×3 (08:51→16:07)
[2017-01-28 10:24] LABS: NUCLEATED RED BLOOD CELLS 1 /100 WBC; PLATELET ESTIMATE NORMAL
[2017-01-28] MEDS ORDERED: POTASSIUM CHLORIDE 20MEQ TABLET SR PO NR (10:45)
[2017-01-28] MEDS: SODIUM CHLORIDE 0.9% 1,000 ML IV SCH ×2 (16:00→18:05)
[2017-01-29] VITALS (12 sets, daily range): BP systolic 97–122; BP diastolic 58–77
[2017-01-29] MEDS: SODIUM CHLORIDE 0.9% 1,000 ML IV SCH ×2 (03:25→13:48)
[2017-01-29] MEDS: PIPERACILLIN/TAZ 3.375G PREMIX 50 ML IV SCH ×4 (03:26→21:01)
[2017-01-29] MEDS: MORPHINE SULFATE 4 MG/ML CPJ (NOT FOR IM USE) IV PRN ×3 (05:12→17:28)
[2017-01-29 07:05] LABS: HEMATOCRIT. 23.6 % (36.0-48.0); HEMOGLOBIN. 7.8 g/dL (12.0-16.0); MEAN CORPUSCULAR HEMOGLOBIN 27.9 pg (28.0-32.0); MEAN PLATELET VOLUME 7.8 fl (7.4-10.4); PLATELET 306 x1000/uL (130-400); RED BLOOD CELL COUNT 2.81 mill/uL (4.2-5.4); RED CELL DISTRIBUTION WIDTH 16.6 % (11.6-14.6)
[2017-01-29 07:37] LABS: CARBON DIOXIDE 24 mEq/L (21-32); CHLORIDE 116 mEq/L (98-107)
[2017-01-29] MEDS: MIDODRINE HCL 5MG TABLET PO SCH ×3 (08:39→16:43)
[2017-01-29] MEDS: VANCOMYCIN 1250MG in DEXTROSE 5% WATER 250ML IV SCH (10:16)
[2017-01-29 10:50] LABS: PLATELET ESTIMATE NORMAL
[2017-01-29] MEDS ORDERED: AMOX-424 PO (12:35)
[2017-01-29] MEDS ORDERED: OXYC-523 PO (12:35)
[2017-01-29] MEDS ORDERED: POTASSIUM CHLORIDE 20MEQ TABLET SR PO NR (16:15)
[2017-01-30] VITALS (9 sets, daily range): BP systolic 91–133; BP diastolic 46–74
[2017-01-30] MEDS: PIPERACILLIN/TAZ 3.375G PREMIX 50 ML IV SCH ×2 (03:35→08:56)
[2017-01-30] MEDS: MORPHINE SULFATE 4 MG/ML CPJ (NOT FOR IM USE) IV PRN ×2 (03:36→08:58)
[2017-01-30] MEDS: SODIUM CHLORIDE 0.9% 1,000 ML IV SCH ×2 (03:43→11:52)
[2017-01-30] MEDS: VANCOMYCIN 1250MG in DEXTROSE 5% WATER 250ML IV SCH (08:56)
[2017-01-30] MEDS: MIDODRINE HCL 5MG TABLET PO SCH ×2 (08:57→12:06)
[2017-01-30] MEDS ORDERED: MORPHINE SULFATE 4 MG/ML CPJ (NOT FOR IM USE) IV PRN (11:15)
== END 2017-01-30 18:03 | disposition home health service (06) | DRG 660 ==
LOC: ER 12:40 → ENRESERV 14:28 → CANBEDREQ 16:41 → 6WST 17:47 → 5EST 01-24 14:00
PROVIDERS: ADMIT Internal Medicine; ATTEND Internal Medicine
PROC: 30233N1 Transfusion of Nonautologous Red Blood Cells into Peripheral Vein, Percutaneous Approach (ICD-10-PCS; principal; 2017-01-23)
DX: D61.810 Antineoplastic chemotherapy induced pancytopenia (principal); E43 Unspecified severe protein-calorie malnutrition; C84.A0 Cutaneous T-cell lymphoma, unspecified, unspecified site; D68.9 Coagulation defect, unspecified; I95.9 Hypotension, unspecified; L97.109 Non-pressure chronic ulcer of unspecified thigh with unspecified severity; L98.419 Non-pressure chronic ulcer of buttock with unspecified severity; T45.1X5A Adverse effect of antineoplastic and immunosuppressive drugs, initial encounter; B96.89 Other specified bacterial agents as the cause of diseases classified elsewhere; Z16.21 Resistance to vancomycin; L29.9 Pruritus, unspecified; R50.81 Fever presenting with conditions classified elsewhere; B87.9 Myiasis, unspecified; E87.6 Hypokalemia; J45.909 Unspecified asthma, uncomplicated; Z86.718 Personal history of other venous thrombosis and embolism; Y92.89 Other specified places as the place of occurrence of the external cause; Z88.8 Allergy status to other drugs, medicaments and biological substances; Z68.39 Body mass index [BMI] 39.0-39.9, adult; Z91.018 Allergy to other foods
CPT/HCPCS: 36415; 71010; 80048; 80053; 80202; 81001; 83605; 84443; 85025; 85027; 85610; 86850; 86900; 86920; 87040; 93005; 93970; 96361; 96365; 96375; 97116; 97162; 97530; 99291; A6261; J1442; J2270; J2543; J3370; J3480; J7030; J7050; J7060; P9016